=== PATIENT | male | born 1970 | race Caucasian/White ===

== ENCOUNTER 2017-08-12 16:39 | Emergency (ER) | payer SELFPAY ==
[~2017-08-12] VITALS: Ht 167.6 cm; Wt 86.0 kg
[2017-08-12 18:57] VITALS: BP 121/79
== END 2017-08-12 18:58 | disposition home or self-care (01) ==
LOC: ER 16:42
DX: M25.442 Effusion, left hand (principal); L03.90 Cellulitis, unspecified; F17.200 Nicotine dependence, unspecified, uncomplicated
CPT/HCPCS: 73140; 99284